=== PATIENT | female | born 1990 | race Hispanic/Latino ===

== ENCOUNTER 2018-06-24 04:43 | Inpatient (IN) | payer SELFPAY ==
[2018-06-23 17:16] LABS: RPR Titer ND
[2018-06-23 17:19] LABS: Absolute Lymphocytes (CBC) 1.8 K/uL (0.7-4.9); Absolute Monocytes 0.5 K/uL (0.1-1.3); Absolute Neutrophil 5.6 K/uL (1.8-8.0); Basophils % 0.2 % (0-1.3); Eosinophils % 0.3 % (0-4.4); Hematocrit 35.9 % (36.0-45.0); Lymphocytes % 22.8 % (15.3-44.8); MPV 9.7 fL (7.6-11.3); Monocytes % 6.5 % (3.3-12.3); RBC Red Blood Cell Count 3.63 M/uL (3.86-4.86)
[2018-06-23 17:25] LABS: Urine Appearance CLEAR; Urine Bilirubin NEGATIVE (NEG); Urine Blood NEGATIVE (NEG); Urine Color YELLOW; Urine Glucose NEGATIVE (NEG); Urine Protein NEGATIVE (NEG); Urine Urobilinogen 0.2 mg/dL (0.2-1.0); Urine pH 7.5 (5.0-7.0)
[2018-06-23 17:36] LABS: Urine Bacteria 20-50 /HPF (<20); Urine RBC <5 /HPF (NONE SEEN)
[2018-06-23 17:37] LABS: Urine Culture Reflex Order REFLEXED; Urine Mucus 1+ /HPF (NONE SEEN)
[2018-06-23 17:55] LABS: Protime INR 0.88
--- NOTE | 2018-06-23 21:01 | PREOPHP ---
Date of Admission: 06/24/2018 History Of Present Illness: This is a 28-year-old 2, para 1, previous for repeat c esarean section. Infection, blood loss, anesthetic complications, injury to bladder, bowel, ureter, postoperative complications, clots in legs, and pneumonia discussed. The patient knows fully well. This does not constitute all the possible problems that could occur during or following surgery. Family History: Mother with breast cancer but otherwise negative. The patient has had breast implants, liposuction, butt implants, , and has numerous tattoo. She is on vitamins prior to admission. She does not smoke. Physical Examination: HEENT: Clear. Pupils equal, round, and reactive to light and accommodation. Conjunctivae well perf used. No oral, lingual, or buccal lesions. Chest and Lungs: Clear. Heart: Without murmurs, thrills, heaves, or rubs. Breasts: Not examined today. Abdomen: Term size. Baby is vertex. Extremities: Clear. Cervix is fingertip. Baby, head first, well applied, but still fairly high in the pelvis. We will proceed with repeat section. We have discussed the scar. The patient has a keloid. We will try to improve the incision appearance, but she knows that we cannot guarantee any plastic repair or that it would look any better than it does now. Full discussion. EVANGELINA/MALACHI Voice ID: [id number]
[2018-06-23 21:52] LABS: RPR (Rapid Plasma Reagin) NON-REACT (NON-REACT)
[2018-06-24] MEDS ORDERED: Ringers Lactate 1,000 ML IV PRN (04:44)
[2018-06-24] MEDS ORDERED: METOCLOPRAMIDE 10 MG/2mL INJ IV SCH (05:00)
[2018-06-24] MEDS ORDERED: Ringers Lactate 1,000 ML IV SCH (05:00)
[2018-06-24 05:06] VITALS: BMI 21.4
[2018-06-24] MEDS ORDERED: NA CIT/CITRIC AC 30 ML ORAL UDC PO ONE (05:30)
[2018-06-24] MEDS ORDERED: FAMOTIDINE 20 MG/2 ML VIAL IV ONE (05:30)
[2018-06-24] MEDS ORDERED: CARBOPROST TROME 250 MCG/ML IM ONE (06:58)
[2018-06-24] MEDS ORDERED: CEFAZOLIN 2 GM in NA CHLORIDE 0.9% 100 ML IVPB ONE (07:00)
[2018-06-24] MEDS ORDERED: METHYLERGONOVINE 0.2MG/ML AMP IM ONE (07:00)
[2018-06-24] MEDS ORDERED: CEFAZOLIN/SWI 2gm 0 GM/0 ML SYR ONE (07:11)
[2018-06-24] MEDS ORDERED: BUPIVACAINE 0.75% (PF) 2 ML SP ONE (07:29)
[2018-06-24] MEDS ORDERED: MORPHINE SULFATE/PF 1 MG/ML (10 ML AMP) ONE (07:31)
[2018-06-24] MEDS ORDERED: EPHEDRINE SULF 50 MG/ML VIAL ONE (07:32)
[2018-06-24] MEDS ORDERED: OXYTOCIN 10 UNIT/ML ML IV ONE ×2 (07:32→08:06)
[2018-06-24] MEDS ORDERED: MIDAZOLAM HCL 2 MG/2 ML INJ ONE (08:00)
[2018-06-24] MEDS ORDERED: Oxycodone HCl/Acetaminophen 1 TAB TAB PO PRN (09:08)
[2018-06-24] MEDS ORDERED: DOCUSATE NA/SENNA CONC 1 TAB PO PRN (09:08)
[2018-06-24] MEDS ORDERED: ONDANSETRON 4 MG/2 ML VIAL IV PRN (09:08)
[2018-06-24] MEDS ORDERED: ACETAMINOPHEN 500 MG TAB PO PRN (09:08)
[2018-06-24] MEDS ORDERED: D5LR 1,000 ML with OXYTOCIN 20 UNIT IV SCH ×2 (09:14)
[2018-06-24] MEDS: KETOROLAC 30 MG/ML INJ IV PRN (10:00)
[2018-06-24] MEDS ORDERED: OXYTOCIN/LR 20 UNIT/1,000 ML BAG IV SCH (10:00)
[2018-06-24] MEDS ORDERED: Ringers Lactate 1,000 ML IV ONE (10:08)
[2018-06-24] MEDS ORDERED: CEFAZOLIN 2GM (PREMIX IV) 2 GM/50 ML BAG IV ONE (16:00)
[2018-06-24] MEDS ORDERED: CEFAZOLIN 1GM (PREMIX IV) 1 GM/50 ML BAG ONE ×2 (16:13→16:42)
--- NOTE | 2018-06-24 18:56 | OP ---
Surgeon: Ravindra Fuller MD Director Of Pharmacy: Dr. Wolff. Anesthesiologist: Dr. Miles. Indications: The patient is a 28-year-old 2, para 1, repeat section at 39 weeks. F ull preoperative counseling concerning procedure and possible complications, including infection, blo od loss, anesthetic complications, injury to bladder, bowel, or ureter, postoperative complications, clots in legs, pneumonia. The patient knows fully well this does not constitute all the possible pro blems that could occur during or following surgery. Anesthesia: Spinal block anesthesia. Procedure In Detail: Prepping and draping was then performed and time-out was performed. A transver se Pfannenstiel incision was created over the previous incision site. The incision was carried to th e fascia. The fascia was incised and incision carried transversely bilaterally. There was significa nt diastasis recti noted. Very thin peritoneal covering, which was entered on dissection of the ante rior fascia. Low transverse uterine incision created. A 7-pound 12-ounce female delivered without d ifficulties. Apgars 9 and 9. Loose nuchal cord x1. Cord blood specimen was obtained. The placenta was removed manually. Uterus cleared of clot and blood and exteriorized. Cervical os was dilated w ith ring clamp. Uterus closed with a running-locked stitch of 1 chromic followed by imbricating stit ch of 1 chromic. Estimated blood loss during the procedure 900 cc or less. Uterus was replaced in t he peritoneal cavity. Inspection of the suture line showed no further bleeding. The gutters clear o f clot and blood. Rectus muscles reapproximated using 0 Vicryl interrupted sutures. Fascia was then closed with 1 Vicryl running from either angle to the midline. Subcutaneous tissue was closed with 2-0 plain, followed by absorbable virginia and then metal virginia. The patient had been given 2 g of Ancef prior to the procedure. Tolerated all procedures well. She was transferred back to her room i n good condition. Final Diagnoses: 1.Term intrauterine , 39 weeks. 2.Repeat section. 3.Spinal block anesthesia. 4.Diastasis recti noted. EVANGELINA/MALACHI Voice ID: [id number] Report ID: [id number]
[2018-06-24] MEDS: IBUPROFEN 400 MG TAB PO PRN (23:45)
[2018-06-25] MEDS: KETOROLAC 30 MG/ML INJ IV PRN (07:03)
[2018-06-25] MEDS: IBUPROFEN 400 MG TAB PO PRN ×2 (11:34→18:32)
--- NOTE | 2018-06-25 11:39 | DS ---
Hospital Course: A 28-year-old 2, para 1, 39 weeks. Repeat section. Spinal block anesthesia. Delivery of 7-pound 12-ounce female. Apgars 9 and 9. Low transverse uterine incision. Spinal block anesthesia. 900 cc blood loss. Noted to have diastasis recti, which the muscles were reapproximated with 0 Vicryl. Ancef given for prophylaxis. Postoperatively, she has done quite well . We will discontinue her [place] and IV this morning. Begin p.o. intake. She has already ambulated. Continue ambulation. The patient was instructed she can go home this afternoon after 5 p.m. or joseph t until tomorrow morning. If any questions at that time, Dr. Rodriguez will assume care. She is to come back and see me in 1 week for followup, to report any temperature elevation of 100 degrees or greate r, severe pain, heavy bleeding, or any other type of abnormalities. Dismissed with tramadol for anal gesia. Final Diagnoses: Term intrauterine , 39 weeks. Repeat section. Spinal block anes thesia. Diastasis recti - reapproximated. EVANGELINA/MALACHI Voice ID: [id number] Report ID: [id number]
[2018-06-25] MEDS: Oxycodone HCl/Acetaminophen 1 TAB TAB PO PRN ×2 (14:25→22:51)
[2018-06-26] MEDS: IBUPROFEN 400 MG TAB PO PRN (04:08)
[2018-06-26] MEDS: Oxycodone HCl/Acetaminophen 1 TAB TAB PO PRN (08:00)
[2018-06-26 08:49] VITALS: BP 118/74; TEMP 97.8
[2018-06-26 21:14] LABS: HBsAG Nonreactive (Nonreactive)
== END 2018-06-26 09:20 | disposition home or self-care (01) | DRG 788 ==
LOC: 2ND-WC 04:43
PROVIDERS: ADMIT Specialist; ATTEND Specialist
PROC: 10D00Z1 Extraction of Products of Conception, Low, Open Approach (ICD-10-PCS; principal; 2018-06-24 07:30)
DX: O34.211 Maternal care for low transverse scar from previous cesarean delivery (principal); N85.8 Other specified noninflammatory disorders of uterus; O69.81X0 Labor and delivery complicated by cord around neck, without compression, not applicable or unspecified; O71.89 Other specified obstetric trauma; Z3A.39 39 weeks gestation of pregnancy; Z37.0 Single live birth
CPT/HCPCS: 36415; 81001; 85014; 85025; 85610; 85730; 86592; 86850; 86900; 86901; 87086; 87088; 87340; 88307; J0690; J2210; J2250; J2590; J2765